=== PATIENT | male | born 1965 | race Caucasian/White ===

== ENCOUNTER 2017-04-28 07:56 | Inpatient (IN) | payer OTHER ==
[~2017-04-28] VITALS: Ht 172.7 cm; Wt 76.9 kg
[2017-04-28] MEDS ORDERED: [UNRECOGNIZED DRUG - REMARK] (08:11)
[2017-04-28] MEDS ORDERED: KETOROLAC TROMETHAMINE 15 MG INJ IV ONE (08:15)
[2017-04-28] MEDS ORDERED: IV NORMAL SALINE 1000 ML BAG IV ONE (08:15)
[2017-04-28] MEDS ORDERED: ONDANSETRON 4 MG/2 ML VIAL IV ONE (08:15)
[2017-04-28] MEDS ORDERED: MORPHINE SULFATE 2 MG/1 ML DISP.SYRIN IV ONE ×2 (08:15→09:30)
[2017-04-28] MEDS ORDERED: KETOROLAC TROMETHAMINE 30 MG INJ ONE (08:32)
[2017-04-28] MEDS ORDERED: ONDANSETRON 4 MG/2 ML VIAL ONE (08:33)
[2017-04-28] MEDS ORDERED: MORPHINE SULFATE 4 MG/1 ML DISP.SYRIN ONE (08:33)
[2017-04-28 08:35] LABS: BASOPHILS # (AUTO) 0.1 K/uL (0.0-8.0); EOSINOPHILS # (AUTO) 0.1 K/uL (0.0-0.7); EOSINOPHILS % (AUTO) 0.6 % (0.0-7.0); HEMATOCRIT 43.3 % (40-50); HEMOGLOBIN 14.4 G/DL (14.0-18.0); LYMPHOCYTES # (AUTO) 1.5 K/UL (0.8-4.8); LYMPHOCYTES % (AUTO) 13.7 % (20.5-51.5); MEAN CORPUSCULAR HEMOGLOBIN 27.1 UUG (27.0-31.0); MEAN CORPUSCULAR HGB CONC 33 g/dL (32.0-37.0); MEAN CORPUSCULAR VOLUME 81.5 FL (82.0-92.0); MONOCYTES # (AUTO) 0.4 K/UL (0.1-1.30); MONOCYTES % (AUTO) 3.9 % (0.0-11.0); NEUTROPHILS # (AUTO) 8.9 K/UL (1.8-8.9); NEUTROPHILS % (AUTO) 80.8 % (38.5-71.5); PLATELET COUNT (AUTO) 271 K/UL (150-450); RED BLOOD CELL COUNT(AUTO) 5.31 MIL/UL (4.7-6.1)
[2017-04-28 08:45] LABS: CREATININE 1.3 mg/dL (0.6-1.3); POTASSIUM 4.4 mmol/L (3.5-5.1)
--- NOTE | 2017-04-28 08:49 | NUR ---
Patient is back from CT scan, decreased pains expressed, pending urine specimen & results from CT scan/blood tests at this time.
[2017-04-28 08:51] LABS: BILIRUBIN,DIRECT 0.1 mg/dL (0.0-0.2); BILIRUBIN,TOTAL 0.8 mg/dL (0.2-1.0); TOTAL PROTEIN, SERUM 7.6 g/dL (6.4-8.2)
[2017-04-28 09:17] LABS: BAND % (MANUAL) 4 % (0-10); LYMPHOCYTES % (MANUAL) 15 % (20-40); MONOCYTES % (MANUAL) 9 % (2-10); NEUTROPHILS % (MANUAL) 70 % (42-75)
[2017-04-28 09:19] LABS: REACTIVE LYMPHOCYTES 2 % (0-0)
[2017-04-28] MEDS ORDERED: MORPHINE SULFATE 2 MG/1 ML DISP.SYRIN ONE (09:44)
[2017-04-28 09:46] LABS: *BILIRUBIN,URIN NEGATIVE (NEGATIVE); *BLOOD, URINE 2+ (NEGATIVE); *COLOR,URINE YELLOW (YELLOW); *KETONES,URINE 3+ (NEGATIVE); *PROTEIN,URINE 1+ (NEGATIVE); *UROBILINOGEN,URINE 0.2 E.U./dl (NORMAL); LEUKOCYTE ESTERASE ,URINE 1+ (NEGATIVE); NITRITE, URINE NEGATIVE (NEGATIVE); UGLUCOSE NEGATIVE (NEGATIVE)
[2017-04-28 09:58] LABS: *CLARITY,URINE HAZY (CLEAR)
[2017-04-28 09:59] LABS: BACTERIA,URINE NONE SEEN /HPF (NONE SEEN); MUCUS,URINE FEW /LPF (0-FEW); SQUAMOUS EPITHELIAL CELL,UR FEW /HPF (NONE SEEN)
--- NOTE | 2017-04-28 10:06 | NUR ---
Placed 2nd call to [facility] for admit.
[2017-04-28] MEDS ORDERED: MORPHINE SULFATE 2 MG/1 ML DISP.SYRIN IV PRN (10:15)
[2017-04-28] MEDS ORDERED: PANTOPRAZOLE SODIUM 40 MG TABLET.DR PO SCH (10:15)
[2017-04-28] MEDS ORDERED: ACETAMINOPHEN 325 MG TABLET PO PRN (10:15)
[2017-04-28] MEDS ORDERED: ONDANSETRON 4 MG/2 ML VIAL IV PRN (10:15)
--- NOTE | 2017-04-28 10:28 | NUR ---
Patient is resting comfortably in bed with eyes closed. PATIENT IS PAIN FREE AT THIS TIME. Patient is for transfer to floor as soon as possible.
--- NOTE | 2017-04-28 11:00 | NUR ---
NEW PATIENT FROM ER TO ROOM 217 AWAKE ALERT COOPERATE WELL STATE HAVING RT FLANK SEVERE PAIN START LAST NIGHT AND HAVING DIFF TO URINATE NO N/V CALL LIGHT INSTRUCTION AND ON FALL PRECAUTION FAMILY AT BEDSIDE
--- NOTE | 2017-04-28 11:20 | NUR ---
BROOD HATCHERY MANAGER FRANCISCO JAVIER VEGA SEEN PATIENT AT THIS TIME STATE STILL PAIN #3 AND PAIN MED THAT ER GIVEN HELP TO RELIEF PAIN
[2017-04-28 11:25] VITALS: BP 128/73
[2017-04-28] MEDS ORDERED: PANTOPRAZOLE SODIUM 40 MG TABLET.DR PO ONE (11:30)
[2017-04-28] MEDS: TAMSULOSIN HCL 0.4 MG CAP.SR.24H PO SCH ×2 (11:47→20:10)
[2017-04-28] MEDS: CEFTRIAXONE 1 G in IV DEXTROSE 5% 50 ML IV SCH (11:47)
[2017-04-28] MEDS: AMLODIPINE 5 MG TABLET PO SCH (11:47)
[2017-04-28 15:23] VITALS: BP 114/77
--- NOTE | 2017-04-28 16:00 | NUR ---
RESTING WELL URINE FOR C&S SENT TO LAB ORDER AND STRAIN ALL URINE EXPLAINED TO PATIENT
[2017-04-28] MEDS: MORPHINE SULFATE 2 MG/1 ML DISP.SYRIN IV PRN ×2 (17:01→20:11)
[2017-04-28] MEDS: IV NS 1000 ML 1,000 ML IV PRN (17:04)
--- NOTE | 2017-04-28 17:30 | NUR ---
HEMODYNAMIC STATUS STABLE PAIN UNDER CONTROL SAFETY MEASURE PROVIDED CALL [facility] WITHIN REACH
--- NOTE | 2017-04-28 19:20 | NUR ---
Received pt in bed, awake alert and oriented. Verbally responsive and able to make needs known. No apparent distress noted, call light within reach. Safety measures and fall precautions maintained. Bed locked and in lowest position with side rails up x 2. Will continue to monitor.
[2017-04-28 20:20] VITALS: BP 144/88
[2017-04-29] VITALS (7 sets, daily range): BP systolic 117–138; BP diastolic 51–89
[2017-04-29] MEDS: MORPHINE SULFATE 2 MG/1 ML DISP.SYRIN IV PRN ×2 (00:09→05:13)
[2017-04-29] MEDS: IV NS 1000 ML 1,000 ML IV PRN ×2 (03:56→13:44)
[2017-04-29] MEDS: PANTOPRAZOLE SODIUM 40 MG TABLET.DR PO SCH (06:08)
--- NOTE | 2017-04-29 06:38 | NUR ---
Pt in bed, appearing to be asleep. Verbally responsive and able to make needs known. All needs anticipated and met. Pt stable with no apparent distress noted. Continue current plan of care. Bed low, locked with side rails up x 2. Safety measures and fall precautions maintained. Call light within reach.
[2017-04-29 06:39] LABS: BASOPHILS # (AUTO) 0.1 K/uL (0.0-8.0); BASOPHILS % (AUTO) 0.8 % (0.0-2.0); EOSINOPHILS # (AUTO) 0.2 K/uL (0.0-0.7); EOSINOPHILS % (AUTO) 1.8 % (0.0-7.0); HEMATOCRIT 39.7 % (40-50); HEMOGLOBIN 13.3 G/DL (14.0-18.0); LYMPHOCYTES # (AUTO) 2.4 K/UL (0.8-4.8); LYMPHOCYTES % (AUTO) 24.1 % (20.5-51.5); MEAN CORPUSCULAR HEMOGLOBIN 27.5 UUG (27.0-31.0); MEAN CORPUSCULAR HGB CONC 34 g/dL (32.0-37.0); MEAN CORPUSCULAR VOLUME 82.1 FL (82.0-92.0); MONOCYTES # (AUTO) 0.9 K/UL (0.1-1.30); MONOCYTES % (AUTO) 9.2 % (0.0-11.0); NEUTROPHILS # (AUTO) 6.4 K/UL (1.8-8.9); NEUTROPHILS % (AUTO) 64.1 % (38.5-71.5); PLATELET COUNT (AUTO) 241 K/UL (150-450); RED BLOOD CELL COUNT(AUTO) 4.83 MIL/UL (4.7-6.1); WHITE BLOOD COUNT (AUTO) 10.1 K/UL (4.0-11.2)
[2017-04-29 07:15] LABS: THYROID STIMULATING HORMONE 0.9 mIU/mL (0.358-3.740)
[2017-04-29 07:26] LABS: BILIRUBIN,TOTAL 0.5 mg/dL (0.2-1.0); CREATININE 1.7 mg/dL (0.6-1.3); MAGNESIUM 1.7 mg/dL (1.8-2.4); PHOSPHOROUS 2.2 mg/dL (2.5-4.9); TOTAL PROTEIN, SERUM 6.3 g/dL (6.4-8.2)
[2017-04-29] MEDS ORDERED: IV LACTATED RINGERS SOLUTION 1,000 ML BAG IV ONE (07:29)
[2017-04-29] MEDS ORDERED: PROPOFOL 200 MG/20 ML BOTTLE IV ONE (07:29)
[2017-04-29] MEDS ORDERED: SEVOFLURANE 250 ML BOTTLE IH ONE (07:29)
[2017-04-29] MEDS ORDERED: ONDANSETRON 4 MG/2 ML VIAL IV ONE (07:29)
[2017-04-29] MEDS ORDERED: IRR NORMAL SALINE IRRIGATION 2000 ML BOTTLE IR ONE (07:29)
[2017-04-29] MEDS ORDERED: LIDOCAINE-MPF 2% 5 ML VIAL MC ONE (07:29)
[2017-04-29] MEDS: AMLODIPINE 5 MG TABLET PO SCH (09:25)
[2017-04-29] MEDS: TAMSULOSIN HCL 0.4 MG CAP.SR.24H PO SCH ×2 (09:25→21:43)
--- NOTE | 2017-04-29 09:30 | NUR ---
PATIENT SEEN AND EXAMINED BY DR TAMMY FRIEDMAN WITH ORDERS PATIENT TO BE NPO FROM NOW EXCEPT MEDICATIONS FOR CYSTOSCOPY TODAY AND PATIENT EXPRESSED UNDERSTANDING.
[2017-04-29] MEDS: CEFTRIAXONE 1 G in IV DEXTROSE 5% 50 ML IV SCH (10:30)
--- NOTE | 2017-04-29 11:00 | NUR ---
CONSCENT OBTAINED FROM PATIENT FOR THE SCHEDULED PROCEDURE OF CYSTOSCOPY WITH STENT PLACEMENT AT 1600 TODAY AND EXPRESSED UNDERSTANDING
[2017-04-29] MEDS ORDERED: MAGNESIUM OXIDE 400 MG TABLET PO ONE (15:00)
[2017-04-29] MEDS ORDERED: NEUTRA PHOS PACKET PO ONE (15:15)
[2017-04-29] MEDS ORDERED: IOHEXOL 300MG/ML 100 ML INFUS..BTL ONE (15:53)
--- NOTE | 2017-04-29 15:53 | NUR ---
PATIENT PICKED UP BED BED TO OR ORDERED AWAKE ALERT AND ORIENTED.PATIENTS OWN PERSONAL PHONE TAKEN FROM HIM FOR SAFE KEEPING.
[2017-04-29] MEDS ORDERED: FENTANYL CITRATE 100 MCG/2 ML AMPUL ONE (16:08)
[2017-04-29] MEDS ORDERED: MIDAZOLAM HCL 2 MG/2 ML VIAL ONE (16:08)
[2017-04-29] MEDS ORDERED: HYDROCODONE/APAP 5-325MG TABLET PO PRN ×2 (18:00→18:15)
--- NOTE | 2017-04-29 18:13 | NUR ---
PATIENT RETURNED FROM THE PACU AWAKE ALERT AND ORIENTED DENIES PAIN OR DISCOMFORTS AT THIS TIME VSS MADE COMFORTABLE.
[2017-04-29] MEDS ORDERED: PHENAZOPYRIDINE HCL 100 MG TABLET PO PRN ×2 (18:15→18:20)
--- NOTE | 2017-04-29 18:15 | NUR ---
PATIENTS PHONE WAS RETURNED TO HIM WITH THE PACU NURSE PRESENT AND PATIENTS SIGNIFICANT OTHER [facility] AT THE BEDSIDE.
--- NOTE | 2017-04-29 18:39 | NUR ---
PER REPORT PATIENT VOIDED 375 ML OF BLOODY URINE.
--- NOTE | 2017-04-29 19:15 | NUR ---
Received pt in bed, awake, alert and oriented x 4, verbally responsive. No apparent distress noted. Pt denies any pain or discomfort at this time. Bed in lowest position, locked with side rails up x 2. Safety measures and fall precautions maintained. Call light within reach. Will continue to monitor. Continue current plan of care.
[2017-04-29] MEDS ORDERED: CIPROFLOXACIN HCL 250 MG TABLET PO SCH (21:00)
[2017-04-29] MEDS ORDERED: CEFTRIAXONE 1 G in IV DEXTROSE 5% 50 ML IV SCH (23:30)
--- NOTE | 2017-04-29 23:30 | NUR ---
IV ROCEPHIN 1 GM NOT GIVEN, GIVEN 04/29 1030.
[2017-04-30] MEDS: IV NS 1000 ML 1,000 ML IV PRN ×2 (01:00→09:24)
[2017-04-30 06:14] VITALS: BP 116/76
[2017-04-30] MEDS: PANTOPRAZOLE SODIUM 40 MG TABLET.DR PO SCH (06:54)
[2017-04-30 07:10] LABS: BASOPHILS # (AUTO) 0.1 K/uL (0.0-8.0); BASOPHILS % (AUTO) 0.9 % (0.0-2.0); EOSINOPHILS # (AUTO) 0.2 K/uL (0.0-0.7); EOSINOPHILS % (AUTO) 3.1 % (0.0-7.0); HEMATOCRIT 39.1 % (40-50); HEMOGLOBIN 13.1 G/DL (14.0-18.0); LYMPHOCYTES # (AUTO) 1.9 K/UL (0.8-4.8); LYMPHOCYTES % (AUTO) 23.6 % (20.5-51.5); MEAN CORPUSCULAR HEMOGLOBIN 27.5 UUG (27.0-31.0); MEAN CORPUSCULAR HGB CONC 34 g/dL (32.0-37.0); MEAN CORPUSCULAR VOLUME 82.1 FL (82.0-92.0); MONOCYTES # (AUTO) 0.6 K/UL (0.1-1.30); MONOCYTES % (AUTO) 7.9 % (0.0-11.0); NEUTROPHILS # (AUTO) 5.2 K/UL (1.8-8.9); NEUTROPHILS % (AUTO) 64.5 % (38.5-71.5); PLATELET COUNT (AUTO) 220 K/UL (150-450); RED BLOOD CELL COUNT(AUTO) 4.76 MIL/UL (4.7-6.1)
[2017-04-30] MEDS ORDERED: SEVOFLURANE 250 ML BOTTLE IH ONE (07:22)
[2017-04-30] MEDS ORDERED: IRR NORMAL SALINE IRRIGATION 2000 ML BOTTLE IR ONE (07:22)
[2017-04-30] MEDS ORDERED: IV LACTATED RINGERS SOLUTION 1,000 ML BAG IV ONE (07:22)
[2017-04-30] MEDS ORDERED: PROPOFOL 200 MG/20 ML BOTTLE IV ONE (07:22)
[2017-04-30] MEDS ORDERED: LIDOCAINE-MPF 2% 5 ML VIAL MC ONE (07:22)
[2017-04-30] MEDS ORDERED: ONDANSETRON 4 MG/2 ML VIAL IV ONE (07:22)
[2017-04-30 07:29] LABS: PHOSPHOROUS 2.7 mg/dL (2.5-4.9); POTASSIUM 3.8 mmol/L (3.5-5.1)
[2017-04-30 07:30] LABS: MAGNESIUM 1.8 mg/dL (1.8-2.4)
--- NOTE | 2017-04-30 09:00 | NUR ---
AWAKE ALERT ORIENTED AND VERBALLY RESPONSIVE DENIES PAIN OR DISCOMFORTS AT THIS TIME.REMAIN ON IVF ORDERED NOT IN DISTRESS AT THIS TIME.
[2017-04-30] MEDS: TAMSULOSIN HCL 0.4 MG CAP.SR.24H PO SCH (09:24)
[2017-04-30] MEDS: AMLODIPINE 5 MG TABLET PO SCH (09:24)
[2017-04-30] MEDS ORDERED: CEFTRIAXONE 1 G in IV DEXTROSE 5% 50 ML IV SCH (10:30)
[2017-04-30] MEDS ORDERED: HYDR-3326 PO (10:42)
[2017-04-30] MEDS ORDERED: TAMS-3 PO (10:42)
[2017-04-30] MEDS ORDERED: ACET325T53 PO (10:42)
[2017-04-30] MEDS ORDERED: CIPR-262 PO (10:42)
--- NOTE | 2017-04-30 10:43 | NUR ---
The patient will be discharged today back home [[id number], [place] [address]] [address] Chandler. He is in agreement with his discharge and will arrange for his transportation going back home. His RN, Susan, is aware of his discharge plan.
--- NOTE | 2017-04-30 11:30 | NUR ---
NEW ORDER NOTED FROM DR VEGA TO DISCHARGE PATIENT HOME TODAY AND NOTED PATIENT IS AWARE AND STATED THAT HIS SIGNIFICANT OTHER WILL BE HERE TO PICK HIM UP.
[2017-04-30 11:42] VITALS: BP 130/76
--- NOTE | 2017-04-30 12:20 | NUR ---
PATIENT DISCHARGED PICKED UP BY [facility] IN SATISFACTORY CONDITION WITH DISCHARGE INSTRUCTIONS AND PRESCRIPTIONS AND PATIENT INSTRUCTED TO CALL DR FRIEDMAN FOR A FOLLOW UP APPOINTMENT WITHIN THE NEXT ONE TO TWO WEEKS AND THEY EXPRESSED UNDERSTANDING.PATIENT DECLINED BEING EDUCATED BY THE [facility] PHARMACIST.
[2017-04-30] MEDS ORDERED: SIMVASTATIN 10 MG TABLET PO SCH (21:00)
== END 2017-04-30 12:20 | disposition home or self-care (01) | DRG 694 ==
LOC: ER 07:56 → MED 10:28
PROVIDERS: ADMIT Internal Medicine; ATTEND Internal Medicine
PROC: 0T768DZ Dilation of Right Ureter with Intraluminal Device, Via Natural or Artificial Opening Endoscopic (ICD-10-PCS; principal; 2017-04-29 16:10)
PROC: BT1DZZZ Fluoroscopy of Right Kidney, Ureter and Bladder (ICD-10-PCS; principal; 2017-04-29 16:10)
DX: N13.2 Hydronephrosis with renal and ureteral calculous obstruction (principal); N17.0 Acute kidney failure with tubular necrosis; E87.1 Hypo-osmolality and hyponatremia; I10 Essential (primary) hypertension; N39.0 Urinary tract infection, site not specified; K80.80 Other cholelithiasis without obstruction; Z87.442 Personal history of urinary calculi; R31.29 Other microscopic hematuria; K40.20 Bilateral inguinal hernia, without obstruction or gangrene, not specified as recurrent; N40.1 Benign prostatic hyperplasia with lower urinary tract symptoms; R33.8 Other retention of urine; Z72.0 Tobacco use
CPT/HCPCS: 36415; 70030-TC; 71010; 74000; 83690; 83735; 84100; 84443; 85025; 87040; 87086; A4217; A4663; C1758; C1876; J0696; J1885; J2250; J2270; J2405; J3010; J3490; J7030; J7040; J7060; J7120; Q9967